=== PATIENT | female | born 1960 | race Caucasian/White ===

== ENCOUNTER 2016-06-22 17:38 | Emergency (ER) | payer BC ==
[2016-06-22] MEDS ORDERED: LIDOCAINE VIS-MYLANTA 30 ML UD PO ONE (18:12)
--- NOTE | 2016-06-22 18:46 | RAD ---
EXAM DESCRIPTION: Chest,2 Views CLINICAL HISTORY: 55 years Female chest pain COMPARISON: None. FINDINGS: Bilateral calcified breast implants. The cardiomediastinal silhouette appears unremarkable. No consolidating infiltrates or pleural effusions. No pneumothorax. IMPRESSION: No acute abnormality is identified. Electronically signed by: Satish Huerta MD 06/22/2016 6:45 PM [employer]LECTION OPERATOR
[2016-06-22] MEDS ORDERED: MORPHINE SULFATE INJ 10 MG/ML VIAL IV ONE (20:19)
[2016-06-22] MEDS ORDERED: SODIUM CHLORIDE 0.9% 10 ML VIAL ONE (20:29)
[2016-06-22] MEDS ORDERED: NITROGLYCERIN/D5W IV 250 ML IVS SCH (20:30)
--- NOTE | 2016-06-22 21:19 | ED.PDOC ---
History of Present Illness - General Chief Complaint: Chest Pain/MD Stated Complaint: chest tightness, nausea Time Seen by Provider: 06/22/16 18:11 Source: patient, family Exam Limitations: no limitations - History of Present Illness Initial Comments: the patient is a 55-year-old female presenting secondary to chest pain. The patient has had intermittent chest pain over the last several months. She has a history of antiphospholipid syndrome. She sees Dr. Castillo and has had several studies performed which she does not know the results of. She is apparently scheduled to see him next week. She started to develop more frequent and severe chest pain yesterday. She went to a neighboring emergency room this morning and had a workup showing no myocardial infarction however she was given nitroglycerin several times and each time it did help the pain but the pain returned after the nitroglycerin wore off. She was apparently then given Nitropaste and written a prescription for a longer acting oral nitrate. The chest pain returned this afternoon apparently after the nitroglycerin wore off and is fairly severe according to her. Chest pain is fairly central and squeezing. It is not worse with movement the [place] may make it somewhat worse. She is not really feeling palpitations. No definite diaphoresis. Activity is not definitely make it worse or better. No syncope or near syncope. She does take Coumadin for antiphospholipid syndrome. There is a questionable history of reflux issues. She does also have a history of migraines, depression and anxiety. Timing/Duration: unsure Severity: moderate Improving Factors: medication Worsening Factors: nothing Associated Symptoms: chest pain, malaise, shortness of breath Allergies/Adverse Reactions: Allergies Penicillins Allergy (Verified 06/22/16 19:35) Unknown Home Medications: Ambulatory Orders Aspirin [(None)] 325 mg PO DAILY 06/22/16 Hydroxychloroquine Sulfate [Hydroxychloroquine Sulfat] 400 mg PO DAILY 06/22/16 Lorazepam [Ativan] 1 mg PO BEDTIME 06/22/16 Thyroid [Nature-Throid] 65 mg PO DAILY 06/22/16 Topiramate [Topamax] 50 mg PO BEDTIME 06/22/16 Warfarin Sodium [Coumadin] 9 mg PO DAILY 06/22/16 Review of Systems - Review of Systems Constitutional: States: malaise EENTM: States: no symptoms reported Respiratory: States: short of breath - mild Cardiology: States: chest pain Gastrointestinal/Abdominal: States: no symptoms reported Genitourinary: States: no symptoms reported Musculoskeletal: States: no symptoms reported Skin: States: no symptoms reported Neurological: States: anxiety All other Systems: No Change from Baseline Past Medical History (General) - Patient Medical History Hx 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, hx pulm HTN Hx Congestive Heart Failure: No Hx Thyroid Disease: Yes - Silverio's Hx Diabetes: No - Vaccination History Hx Influenza Vaccination: No Hx Pneumococcal Vaccination: No - Social History Hx Tobacco Use: No - Female History Patient is a Female of Child Bearing Age (10 -59 yrs old): Yes Patient : No Family Medical History - Family History Mother Family History: Unknown Living Status: Unknown Physical Exam - Physical Exam General Appearance: Alert, Anxious, No apparent distress Eye Exam: bilateral normal Ears, Nose, Throat: normal ENT inspection, normal pharynx Neck: non-tender, full range of motion, supple Respiratory: chest non-tender, lungs clear, normal breath sounds, no respiratory distress, no accessory muscle use Cardiovascular/Chest: normal peripheral pulses, regular rate, rhythm, no edema Peripheral Pulses: radial,right: 2+, radial,left: 2+, dorsalis pedis,right: 2+, dorsalis pedis,left: 2+ Gastrointestinal/Abdominal: non tender, soft Rectal Exam: deferred Back Exam: normal inspection, no CVA tenderness Extremity: normal range of motion, non-tender, normal inspection, no pedal edema , no calf tenderness, normal capillary refill Neurologic: circuits engineer II-XII nml as tested, no motor/sensory deficits, alert, oriented x 3, other - flat affect, poor eye contact and soft voice Skin Exam: normal color Comments: Vital Signs - 24 hr 06/22/16 06/22/16 06/22/16 17:50 18:39 19:15 Temperature 97.9 F Pulse Rate [ 73 63 70 Left Radial] Respiratory 18 18 18 Rate Blood Pressure 103/72 113/81 114/70 [Left Arm] O2 Sat by Pulse 98 97 100 Oximetry 06/22/16 20:00 Temperature Pulse Rate [ 77 Left Radial] Respiratory 18 Rate Blood Pressure 106/71 [Left Arm] O2 Sat by Pulse 96 Oximetry Progress - Progress Progress: 02/22/17 21:21 the patient is a 55-year-old female presenting with chest pain that has been recurrent and persistent over the last few days. cardiac enzymes are negative. Laboratory work otherwise is unrevealing. EKG is within normal limits. I found no definite noncardiac reason for her chest pain. She does have a history of antiphospholipid syndrome and is anti-coagulated appropriately. She is a patient of Dr. Gautam. The patient was given a GI cocktail here which did not help the symptoms. She was given a dose of her Ativan which she has been out of for the last 2 days and this did not help either. The only medication that seems to help the chest pain is the nitroglycerin. she is in no distress and her affect is flat. She is receiving nitroglycerin and some pain medications currently. We are transferring the patient for further cardiac evaluation as I've been unable to rule out unstable angina in this patient. vital signs have been stable. - Results/Orders Results/Orders: Laboratory Tests 06/22/16 18:25 WBC 10.0 RBC 3.64 L Hgb 10.7 L Hct 32.2 L MCV 88.4 MCH 29.3 MCHC 33.2 RDW 14.6 H Plt Count 273 MPV 8.6 Absolute Neuts (auto) 7.70 H Absolute Lymphs (auto) 1.50 Absolute Monos (auto) 0.60 Absolute Eos (auto) 0.00 Absolute Basos (auto) 0.10 Neutrophils % 77.2 Lymphocytes % 15.2 L Monocytes % 6.3 Eosinophils % 0.5 L Basophils % 0.8 PT 41.1 H* INR 3.680 H* PTT (SP) 45.2 H D-Dimer, Quantitative < 200 Sodium 139 Potassium 3.5 L Chloride 112 H Carbon Dioxide 21 Anion Gap 9.5 L BUN 21 H Creatinine 0.69 BUN/Creatinine Ratio 30.4 H Random Glucose 114 H Serum Osmolality 281.4 Calcium 8.7 Total Bilirubin 0.3 AST 17 ALT 13 Alkaline Phosphatase 38 L Creatine Kinase 58 CK-MB (CK-2) 0.6 CK-MB (CK-2) % Not Reportable Troponin I < 0.02 B-Natriuretic Peptide 48.0 Serum Total Protein 6.4 Albumin 3.6 Globulin 2.8 Albumin/Globulin Ratio 1.3 Amylase 66 Lipase 41 TSH 1.43 chest x-ray appears benign. EKG shows normal sinus rhythm without any acute ST segment changes concerning for ischemia. Normal axis. Departure - Departure Clinical Impression: Acute angina Disposition: Transfer to Hospital Home Medications: Ambulatory Orders Aspirin [(None)] 325 mg PO DAILY 06/22/16 Hydroxychloroquine Sulfate [Hydroxychloroquine Sulfat] 400 mg PO DAILY 06/22/16 Lorazepam [Ativan] 1 mg PO BEDTIME 06/22/16 Thyroid [Nature-Throid] 65 mg PO DAILY 06/22/16 Topiramate [Topamax] 50 mg PO BEDTIME 06/22/16 Warfarin Sodium [Coumadin] 9 mg PO DAILY 06/22/16 Transfer to Outside Facility - Transfer Information Accepting Provider:: dr hoang Accepting Facility: [facility] Reason for Transfer: required specialist not available
[2016-06-23 00:13] VITALS: BP 111/68; TEMP 98.1; O2SAT 98
--- NOTE | 2016-06-27 00:39 | RAD ---
EXAM DESCRIPTION: Chest,2 Views CLINICAL HISTORY: 55 years Female chest pain COMPARISON: None. FINDINGS: Bilateral calcified breast implants. The cardiomediastinal silhouette appears unremarkable. No consolidating infiltrates or pleural effusions. No pneumothorax. IMPRESSION: No acute abnormality is identified. Electronically signed by: Satish Huerta MD 06/22/2016 6:45 PM SEARCH ADVERTISING STRATEGIST
== END 2016-06-22 23:25 | disposition short-term general hospital (02) ==
LOC: ER 17:38
DX: I20.9 Angina pectoris, unspecified (principal); E06.3 Autoimmune thyroiditis; D68.61 Antiphospholipid syndrome; F41.8 Other specified anxiety disorders; I27.2 Other secondary pulmonary hypertension; Z86.73 Personal history of transient ischemic attack (TIA), and cerebral infarction without residual deficits; Z79.82 Long term (current) use of aspirin; Z79.01 Long term (current) use of anticoagulants; Z88.0 Allergy status to penicillin
CPT/HCPCS: 36415; 71020; 80053; 82150; 82550; 82553; 83690; 83880; 84443; 84484; 85025; 85379; 85610; 85730; 93005; J2060; J2270